=== PATIENT | female | born 1995 | race Caucasian/White ===

== ENCOUNTER 2021-04-03 13:49 | Emergency (ER) | payer OTHER ==
[~2021-04-03] VITALS: Ht 167.6 cm; Wt 54.4 kg
[~2021-04-03 13:49] MED LIST: ACETAMINOPHEN-1 EAC1 PO; DOXYCYCLINE 10100 MG PO; EFFEXOR XR75 MG PO; NAPROSYN500 MG PO; VALIUM5 MG PO; XANAX1 MG PO; ZOFRAN ODT4 MG PO
[2021-04-03 14:53] LABS: URINE BILIRUBIN NEGATIVE (Negative); URINE BLOOD TRACE (Negative); URINE CLARITY CLOUDY; URINE COLOR YELLOW; URINE GLUCOSE-RANDOM NEGATIVE (Negative); URINE KETONES NEGATIVE (Negative); URINE PROTEIN TRACE (Negative); URINE SPECIFIC GRAVITY >= 1.030 (1.005-1.030); URINE UROBILINOGEN 0.2 E.U./dl (0.2-1.0)
[2021-04-03 14:57] LABS: URINE LEUKOCYTES-REFLEX 2+ (Negative); URINE NITRITE-REFLEX POSITIVE (Negative)
[2021-04-03 15:01] LABS: BACTERIA-REFLEX >30 Many /HPF (None Seen); SQUAMOUS 4-10 Moderate /LPF (0-3); URINE RBC 3-10 Few /HPF (0-2); URINE WBC-REFLEX 6-15 Few /HPF (0-5)
[2021-04-03 15:02] LABS: CASTS None Seen /LPF (None Seen); CRYSTALS None Seen /LPF (None Seen); MUCUS 4-6 Moderate strn/LPF (None Seen)
[2021-04-03] MEDS ORDERED: HYDROXYZINE HCL25 M2 PO (16:03)
[2021-04-03] MEDS ORDERED: CEPHALEXIN500 MG PO (16:03)
[2021-04-03] MEDS ORDERED: DOXYCYCLINE 10100 MG PO (16:03)
[2021-04-03] MEDS ORDERED: XANAX 0.5 MG0.5 M1 PO (16:03)
[2021-04-03 16:31] VITALS: BP 114/79
== END 2021-04-03 16:32 | disposition home or self-care (01) ==
LOC: M.ERS 13:49
PROVIDERS: Nurse Practitioner Family
DX: N39.0 Urinary tract infection, site not specified (principal); F41.9 Anxiety disorder, unspecified; A59.09 Other urogenital trichomoniasis; F17.210 Nicotine dependence, cigarettes, uncomplicated

== ENCOUNTER 2021-09-06 13:36 | Emergency (ER) | payer OTHER ==
[~2021-09-06] VITALS: Ht 167.6 cm; Wt 56.7 kg
[~2021-09-06 13:36] MED LIST changes: +CEPHALEXIN500 MG PO; +HYDROXYZINE HCL25 M2 PO; +XANAX 0.5 MG0.5 M1 PO
[2021-09-06 15:10] LABS: URINE BILIRUBIN NEGATIVE (Negative); URINE BLOOD TRACE (Negative); URINE CLARITY CLEAR; URINE COLOR YELLOW; URINE GLUCOSE-RANDOM NEGATIVE (Negative); URINE KETONES NEGATIVE (Negative); URINE LEUKOCYTES 3+ (Negative); URINE NITRITE NEGATIVE (Negative); URINE PROTEIN NEGATIVE (Negative); URINE UROBILINOGEN 0.2 E.U./dl (0.2-1.0)
[2021-09-06 15:20] LABS: CASTS None Seen /LPF (None Seen); CRYSTALS None Seen /LPF (None Seen); MUCUS None Seen strn/LPF (None Seen); SQUAMOUS >10 Many /LPF (0-3); URINE WBC >25 Many /HPF (0-5)
[2021-09-06 15:21] LABS: BACTERIA 1-9 Few /HPF (None Seen); URINE RBC 0-2 Rare /HPF (0-2)
[2021-09-06] MEDS ORDERED: MACROBID 100 M100 MG PO (16:16)
[2021-09-06] MEDS ORDERED: DOXYCYCLINE 10100 MG PO (16:16)
[2021-09-06] MEDS ORDERED: DIFLUCAN150 MG PO (16:17)
[2021-09-06 16:51] VITALS: BP 147/99
== END 2021-09-06 16:54 | disposition home or self-care (01) ==
LOC: M.ERS 13:36
PROVIDERS: Emergency Medicine
DX: N39.0 Urinary tract infection, site not specified (principal); A59.01 Trichomonal vulvovaginitis; N89.8 Other specified noninflammatory disorders of vagina; F41.9 Anxiety disorder, unspecified; F32.9 Major depressive disorder, single episode, unspecified; F17.210 Nicotine dependence, cigarettes, uncomplicated; Z79.899 Other long term (current) drug therapy